=== PATIENT | female | born 1945 | race Caucasian/White ===

== ENCOUNTER 2017-07-23 14:27 | Outpatient (CLI) | payer MEDICARE, BC ==
[~2017-07-23 14:27] MED LIST: Gadobenate Dimeglumine 529 MG/1 ML (20ML VIAL) ONE
== END 2017-07-23 14:28 | disposition home or self-care (01) ==
LOC: BICMRI 14:27
PROVIDERS: ATTEND Anesthesiology Pain Medicine
DX: M51.16 Intervertebral disc disorders with radiculopathy, lumbar region (principal); S32.10XA Unspecified fracture of sacrum, initial encounter for closed fracture
CPT/HCPCS: 72158; 82565; A9579

== ENCOUNTER 2022-06-03 14:13 | Outpatient (CLI) | payer MEDICARE, BC | END 2022-06-03 14:14 | disposition home or self-care (01) | LOC: SCSMRI 14:13 | PROVIDERS: ATTEND Nurse Practitioner Family | DX: M48.061 Spinal stenosis, lumbar region without neurogenic claudication (principal); M47.816 Spondylosis without myelopathy or radiculopathy, lumbar region; Z98.1 Arthrodesis status | CPT/HCPCS: 72120; 72148 ==

== ENCOUNTER 2023-08-14 11:18 | Outpatient (CLI) | payer MEDICARE, BC | END 2023-08-14 11:19 | disposition home or self-care (01) | LOC: SCSMRI 11:18 | PROVIDERS: ATTEND Anesthesiology Pain Medicine | DX: M50.10 Cervical disc disorder with radiculopathy, unspecified cervical region (principal); M43.12 Spondylolisthesis, cervical region; M43.22 Fusion of spine, cervical region | CPT/HCPCS: 72141 ==